=== PATIENT | male | born 1965 | race African-American/Black ===

== ENCOUNTER 2020-03-02 15:24 | Emergency (ER) | payer MEDICAID ==
[~2020-03-02] VITALS: Ht 170.2 cm; Wt 121.0 kg
[2020-03-02] MEDS ORDERED: BACITRACIN ZINC OINT UDPKT TOP ONE (16:00)
[2020-03-02] MEDS ORDERED: TETANUS, DIPHTHERIA, PERTUSSIS VAC/PF 0.5ML (>7YR OLD) IM ONE (16:00)
[2020-03-02] MEDS ORDERED: LIDOCAINE 1%/EPI 1:100,000 10 ML VIAL IJ ONE (16:00)
[2020-03-02] MEDS ORDERED: HYDROCODONE/ACETAMINOPHEN 10/325MG TABLET PO ONE (16:00)
[2020-03-02] MEDS ORDERED: CEPHALEXIN 250MG CAPSULE PO ONE (16:15)
[2020-03-02] MEDS ORDERED: LIDOCAINE HCL/EPINEPHRINE 1%-EPI 1:100,000 20 ML VIAL INFIL NR (16:15)
[2020-03-02 17:24] VITALS: BP 144/81
== END 2020-03-02 17:26 | disposition home or self-care (01) ==
LOC: ER 15:39
DX: S31.115A Laceration without foreign body of abdominal wall, periumbilic region without penetration into peritoneal cavity, initial encounter (principal); W29.8XXA Contact with other powered hand tools and household machinery, initial encounter; R03.0 Elevated blood-pressure reading, without diagnosis of hypertension; Y93.89 Activity, other specified; Y92.89 Other specified places as the place of occurrence of the external cause; F16.10 Hallucinogen abuse, uncomplicated; F12.90 Cannabis use, unspecified, uncomplicated; Z23 Encounter for immunization
CPT/HCPCS: 12005; 90471; 90715; 99284; J3490; Z7610

== ENCOUNTER 2020-03-04 22:03 | Emergency (ER) | payer BC, MEDICAID ==
[~2020-03-04] VITALS: Ht 175.3 cm; Wt 121.0 kg
[2020-03-04 22:15] VITALS: BP 131/92
== END 2020-03-04 23:50 | disposition home or self-care (01) ==
LOC: ER 22:03
DX: S31.119A Laceration without foreign body of abdominal wall, unspecified quadrant without penetration into peritoneal cavity, initial encounter (principal); F12.10 Cannabis abuse, uncomplicated; K21.9 Gastro-esophageal reflux disease without esophagitis; F16.10 Hallucinogen abuse, uncomplicated; X58.XXXA Exposure to other specified factors, initial encounter; Y93.89 Activity, other specified; Y92.89 Other specified places as the place of occurrence of the external cause; Y99.8 Other external cause status
CPT/HCPCS: 99281

== ENCOUNTER 2025-03-22 19:21 | Emergency (ER) | payer BC, MEDICAID ==
[~2025-03-22] VITALS: Ht 170.2 cm; Wt 114.0 kg
[2025-03-22 19:28] VITALS: O2SAT 98
[2025-03-22 20:53] LABS: BASOPHILS % 0.8 % (0.0-2.0); EOSINOPHILS % 1.6 % (0.0-5.0); HEMATOCRIT. 45.5 % (42.0-52.0); HEMOGLOBIN. 15.5 g/dL (14.0-18.0); LYMPHOCYTES % 38.5 % (20.0-50.0); MEAN CORPUSCULAR HEMOGLOBIN 31.4 pg (28.0-32.0); MEAN CORPUSCULAR VOLUME 92.5 fL (80.0-94.0); MONOCYTES % 7.1 % (2.0-8.0); PLATELET 202 x1000/uL (130-400); RED BLOOD CELL COUNT 4.92 mill/uL (4.7-6.1); RED CELL DISTRIBUTION WIDTH 14.4 % (11.6-14.6); WHITE BLOOD COUNT 7.7 x1000/uL (4.5-11.0)
[2025-03-22 21:01] LABS: CHLORIDE 107 mEq/L (98-107); SODIUM 138 mEq/L (136-145)
[2025-03-22 21:02] LABS: CARBON DIOXIDE 22 mEq/L (21-32)
[2025-03-22 21:03] LABS: CALCIUM 9.6 mg/dL (8.7-10.4)
[2025-03-22 21:07] LABS: CREATININE 0.9 mg/dL (0.6-1.3); GLUCOSE 92 mg/dL (70-105); UREA NITROGEN BLOOD 16 mg/dL (9-23)
[2025-03-22 21:15] LABS: TROPONIN I HIGH SENSITIVITY < 4 ng/L (3.0-53)
[2025-03-22] MEDS ORDERED: LIDO700A30 TP (21:17)
[2025-03-22] MEDS: ACETAMINOPHEN 325MG TABLET PO ONE (21:25)
[2025-03-22] MEDS: KETOROLAC 15MG/ML VIAL IV ONE (21:25)
[2025-03-22] MEDS: LIDOCAINE 5% PATCH TOP SCH (21:26)
[2025-03-22 22:01] VITALS: BP 154/78; PULSE 67; RESP 14; TEMP 36.7; O2SAT 96
== END 2025-03-22 22:02 | disposition home or self-care (01) ==
LOC: ER 19:21
DX: S20.219A Contusion of unspecified front wall of thorax, initial encounter (principal); R07.89 Other chest pain; F10.90 Alcohol use, unspecified, uncomplicated; F12.90 Cannabis use, unspecified, uncomplicated; F19.90 Other psychoactive substance use, unspecified, uncomplicated; V43.62XA Car passenger injured in collision with other type car in traffic accident, initial encounter; Y93.89 Activity, other specified; Y92.410 Unspecified street and highway as the place of occurrence of the external cause; Y99.8 Other external cause status; Y90.9 Presence of alcohol in blood, level not specified
CPT/HCPCS: 80048; 83880; 85025; 84484; 36415; 71101; 71120; 93005; 96374; 99285; J1885; Z7610